=== PATIENT | female | born 1975 | race Hispanic/Latino ===

== ENCOUNTER 2019-01-27 07:27 | Emergency (ER) | payer OTHER ==
[~2019-01-27] VITALS: Ht 152.4 cm; Wt 77.1 kg
--- OUTSIDE RECORDS SUMMARY | 2019-01-27 07:29 | XMS REPORT ---
Author Author [facility] Address Unknown Phone Unavailable Care Team Providers Care Accounts Payable Lead Name Role Phone Unavailable Unavailable Payers Payer Name Policy Type Policy Number Effective Date Expiration Date Problems This patient has no known problems. Allergies, Adverse Reactions, Alerts Allergy Name Allergy Type Status Severity Reaction(s) Onset Date Inactive Date Treating Clinician Comments clavulanic acid DA Active [place] 2018-06-17 00:00:00 amoxicillin DA Active [place] 2018-06-17 00:00:00 Medications This patient has no known medications. Results Test Description Test Time Test Comments Text Results Atomic Results Result Comments SCR MAMM BILATERAL GRIFFIN CAD DIGITAL 2018-09-13 11:38:44 - SCR MAMM BILATERAL GRIFFIN CAD DIGITALBILATERAL DIGITAL SCREENING MAMMOGRAM 3D/2D WITH CAD: 09/13/2018CLINICAL: Asymptomatic. Digital breast tomosynthesis was performed in addition to routine CC and MLO views. Current mammographic images were evaluated by either a rPath M-Vu or a [employer] ImageChecker CAD (computer aided detection system). Comparison is made to exams dated 09/14/2017 mammogram, mammogram, and 03/27/2015 mammogram - [facility]. There are scattered fibroglandular tissues in both breasts. There is a benign calcification in the right breast. No suspicious mass, architectural distortion, malignant type calcification, or lymph node abnormality detected. Breast architecture is stable compared to prior exams.IMPRESSION: BENIGNThere is no mammographic evidence of malignancy. Resume annual screening mammography in one year. Ever Skinner M.D. ss/penrad:09/13/2018 11:38:44 Search Developer: Nisa Corral , [facility] sent: BIRADS 1-2 Normal Mammogram BI-RADS: 2 Benign SCR MAMM BILATERAL GRIFFIN CAD DIGITAL 2018-09-13 11:38:44 - SCR MAMM BILATERAL GRIFFIN CAD DIGITALBILATERAL DIGITAL SCREENING MAMMOGRAM 3D/2D WITH CAD: 09/13/2018CLINICAL: Asymptomatic. Digital breast tomosynthesis was performed in addition to routine CC and MLO views. Current mammographic images were evaluated by either a rPath M-Vu or a [employer] ImageChecker CAD (computer aided detection system). Comparison is made to exams dated 09/14/2017 mammogram, mammogram, and 03/27/2015 mammogram - [facility] There are scattered fibroglandular tissues in both breasts. There is a benign calcification in the right breast. No suspicious mass, architectural distortion, malignant type calcification, or lymph node abnormality detected. Breast architecture is stable compared to prior exams.IMPRESSION: BENIGNThere is no mammographic evidence of malignancy. Resume annual screening mammography in one year. Ever Skinner M.D. ss/penrad:09/13/2018 11:38:44 Search Developer: Nisa GUILLEN, [facility] sent: BIRADS 1-2 Normal Mammogram BI-RADS: 2 Benign
[2019-01-27] MEDS ORDERED: ROBAXIN-750750 MG (08:23)
[2019-01-27] MEDS ORDERED: METFORMIN HCL500 MG PO (08:23)
[2019-01-27] MEDS ORDERED: ROBAXIN-750750 MG PO (08:24)
[2019-01-27] MEDS ORDERED: TRAZODONE HCL50 MG PO (08:25)
[2019-01-27] MEDS ORDERED: PROGESTERONE100 MG PO (08:25)
[2019-01-27] MEDS ORDERED: TESTOSTERONE5 GM (08:27)
[2019-01-27 08:52] VITALS: BP 133/89
== END 2019-01-27 08:54 | disposition home or self-care (01) ==
LOC: FSED 07:27
DX: M79.674 Pain in right toe(s) (principal); L60.0 Ingrowing nail; L03.031 Cellulitis of right toe
CPT/HCPCS: 10060; 99283